=== PATIENT | female | born 1970 | race Caucasian/White ===

== ENCOUNTER → 2016-07-31 | Outpatient (CLI) | payer BC ==
--- NOTE | 2016-08-01 13:09 | MY ---
EXAMINATION: Bilateral digital mammography utilizing CAD. HISTORY: Screening exam. Comparison is made to previous studies dated 05/25/2014, 08/29/2011. FINDINGS: Bilateral heterogeneously dense breast tissue. No suspicious calcifications, masses or a rchitectural distortions. No pathologic appearing lymph nodes, no abnormal skin thickening or nipp le inversion. CAD highlighted regions appear normal at this time. IMPRESSION: BI-RADS category I - negative mammogram. Continued screening according to ACR-ACS gu idelines suggested. THE FALSE-NEGATIVE RATE OF MAMMOGRAM IS APPROXIMATELY 10%. MANAGEMENT OF A PALPABLE ABNORMALITY MUST BE BASED UPON CLINICAL GROUNDS. SENSITIVITY FOR DETECTION OF ABNORMALITIES IN DENSE BREASTS IS LOW. NOTE: A letter will be sent to the patient regarding findings. [facility] -- ELIAZAR Dasilva [phone] - FAX [phone]
== END ==
LOC: MW.MAM 14:23
PROVIDERS: ATTEND Obstetrics & Gynecology
DX: Z12.31 Encounter for screening mammogram for malignant neoplasm of breast (principal)
CPT/HCPCS: G0202; G0202-26

== ENCOUNTER 2016-09-25 06:27 | Observation (INO) | payer BC ==
[~2016-09-25 06:27] MED LIST: Clindamycin Phosphate 900 MG in Dextrose 5% in Water 50 ML IV SCH; DEXTROSE 5% IV ONE; GENTAMICIN IV ONE; Gentamicin Pediatric 10 MG/ML 2 ML SDV IV ONE; Sodium Chloride 0.9% 10 ML Syringe FLUSH PRN; Sodium Chloride 0.9% 2.5 ML Syringe FLUSH PRN; WATER IV ONE
[2016-09-25] MEDS ORDERED: Ondansetron 4 MG/2 ML SDV ONE (07:06)
[2016-09-25] MEDS ORDERED: fentaNYL 250 MCG/5 ML SDV ONE (07:06)
[2016-09-25] MEDS ORDERED: diphenhydrAMINE 50 MG/ML SDV ONE (07:06)
[2016-09-25] MEDS ORDERED: Lidocaine 2% 5 ML SDV ONE (07:06)
[2016-09-25] MEDS ORDERED: Midazolam 1 MG/ML 2 ML SDV ONE (07:06)
[2016-09-25] MEDS ORDERED: Propofol 200 MG/20 ML SDV ONE (07:06)
[2016-09-25] MEDS ORDERED: HYDROmorphone 2 MG/ML Syringe ONE (07:06)
[2016-09-25] MEDS ORDERED: Dexamethasone 4 MG/ML 5 ML MDV ONE (07:06)
--- NOTE | 2016-09-25 07:06 | PCM.PREANE ---
Preanesthetic Assessment - Anesthesia/Transfusion/Family Hx Anesthesia History: Prior Anesthesia Without Reaction Family History of Anesthesia Reaction: No Transfusion History: No Prior Transfusion(s) - Review of Systems General: No Symptoms Pulmonary: No Symptoms Cardiovascular: No Symptoms Gastrointestinal: No symptoms Neurological: No Symptoms Other: Reports: None - Physical Assessment O2 Sat by Pulse Oximetry: 99 Respiratory Rate: 16 Vital Signs: Last Vital Signs Temp 36.3 C 09/25/16 06:45 Pulse 77 09/25/16 06:45 Resp 16 09/25/16 06:45 BP 115/70 09/25/16 06:45 Pulse Ox 99 09/25/16 06:45 Height: 1.75 m Weight: 77.111 kg ASA Class: 2 Mental Status: Alert & Oriented x3 Airway Class: Mallampati = 2 Dentition: Reports: Normal Dentition Thyro-Mental Finger Breadths: 3 Mouth Opening Finger Breadths: 3 ROM/Head Extension: Full Lungs: Clear to auscultation, Normal respiratory effort Cardiovascular: Regular Rate, Regular Rhythm - Allergies Allergies/Adverse Reactions: Allergies Allergy/AdvReac Type Severity Reaction Status Date / Time Penicillins Allergy Rash Verified 09/25/16 06:52 - Blood Blood Available: No - Anesthesia Plan Pre-Op Medication Ordered: None - Acknowledgements Anesthesia Type Planned: General Anesthesia Pt an Appropriate Candidate for the Planned Anesthesia: Yes Alternatives and Risks of Anesthesia Discussed w Pt/Guardian: Yes Pt/Guardian Understands and Agrees with Anesthesia Plan: Yes PreAnesthesia Questionnaire Genitourinary History: Reports: Other (See Below) (HSV 2) 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 [No Known Home Meds] 09/21/16 [History] - CURRENT (IN HOUSE) MEDS Current Meds: Current Medications Clindamycin Phosphate 900 mg/ (Dextrose/Water) 56 mls @ 100 mls/hr IV ONETIME ERNESTO Sodium Chloride (Saline Flush) 10 ml FLUSH ASDIRECTED PRN PRN Reason: Keep Vein Open Sodium Chloride (Saline Flush) 2.5 ml FLUSH ASDIRECTED PRN PRN Reason: Keep Vein Open Discontinued Medications Gentamicin Sulfate (Gentamicin) 115.6665 mg IV ONETIME ONE Stop: 09/25/16 06:01 Gentamicin Sulfate 385 mg/ (Dextrose/Water) 109.625 mls @ 219.25 mls/hr IV ONETIME ONE Stop: 09/25/16 06:29
[2016-09-25] MEDS ORDERED: Sodium Chloride 0.9% 20 ML ONE (07:07)
[2016-09-25] MEDS ORDERED: Clindamycin Phosphate in D5W 900 MG in Premix Bag 1 BAG IV SCH ×2 (07:15)
[2016-09-25] MEDS ORDERED: Methylene Blue 50 MG/10 ML Ampule IV ONE (07:16)
[2016-09-25] MEDS ORDERED: Bupivacaine 0.25% 10 ML SDV ONE (07:16)
[2016-09-25] MEDS ORDERED: Fluorescein 5 ML Vial ONE (07:17)
[2016-09-25] MEDS ORDERED: GENTAMICIN IV ONE ×2 (07:30)
[2016-09-25] MEDS ORDERED: WATER IV ONE ×2 (07:30)
[2016-09-25] MEDS ORDERED: DEXTROSE 5% IV ONE ×2 (07:30)
[2016-09-25] MEDS ORDERED: Scopolamine 1.5 MG Transdermal Patch ONE (07:42)
[2016-09-25] MEDS ORDERED: Phenylephrine/Normal Saline 100 MCG/ML 10 ML Syringe ONE (08:13)
[2016-09-25] MEDS ORDERED: ePHEDrine 50 MG/ML SDV ONE (08:13)
[2016-09-25] MEDS ORDERED: fentaNYL 100 MCG/2 ML SDV IVPUSH PRN (08:35)
[2016-09-25] MEDS ORDERED: Furosemide 40 MG/4 ML VIAL ONE (08:39)
[2016-09-25] MEDS ORDERED: Neostigmine Methylsulfate 1 MG/ML 5 ML Syringe ONE (09:53)
[2016-09-25] MEDS ORDERED: Belladonna Alkaloids/Opium 16.2-30 MG Supp RECTAL ONE (10:49)
[2016-09-25] MEDS ORDERED: Acetaminophen/oxyCODONE 325-5 MG Tab PO PRN (10:52)
[2016-09-25] MEDS ORDERED: Ketorolac 30 MG/ML SDV IVPUSH ONE (10:52)
[2016-09-25] MEDS ORDERED: Morphine 4 MG/ML Syringe IVPUSH PRN (10:52)
[2016-09-25] MEDS ORDERED: Promethazine 25 MG/ML SDV IM PRN (10:52)
[2016-09-25] MEDS ORDERED: Ondansetron 4 MG/2 ML SDV IVPUSH PRN (10:52)
[2016-09-25] MEDS ORDERED: Morphine 2 MG/ML Syringe IVPUSH PRN (10:52)
[2016-09-25] MEDS ORDERED: Ketorolac 30 MG/ML SDV IVPUSH PRN (10:52)
[2016-09-25] MEDS ORDERED: Belladonna Alkaloids/Opium 16.2-30 MG Supp ONE (10:53)
[2016-09-25] MEDS ORDERED: Ketorolac 30 MG/ML SDV ONE (10:54)
--- NOTE | 2016-09-25 11:04 | PCM.OPNOTE ---
[id number]. Laparascopic hysterectomy with bilateral salpingectomies Findings: Approximately 10wk size anteverted uterus with bilateral normal adnexa. Filmy and omental adhesions to the anterior abdominal wall. Multifibroid uterus with largest being a subserosal myoma on the the posterior uterus. Bilateral normal ovaries and tubes. Bilateral ureteral efflux noted at the time of cystoscopy Pre Op Diagnosis: Abnormal uterine bleeding. Failed conservative treatment with medication Post-Op Diagnosis: Same. Uterus removed Anesthesia Technique: General ET Tube Primary Surgeon: Cady Mendiola Secondary Surgeon: Abeba Arrieta Anesthesia Provider: Jerry Dickinson Kettle Room Helper: Gwen Cox Pathology: Uterus and tubes Fluid Replacement, Intraop: 2,700 Output, Urine Amount: 75 EBL in mLs: 150 Complications: None known Condition: Good Free Text/Narrative:: Job ID#[id number]
--- NOTE | 2016-09-25 11:12 | PCM.POSTAN ---
POST ANESTHESIA ASSESSMENT - MENTAL STATUS Mental Status: alert, oriented - RESPIRATORY Respiratory Status: respiratory rate WNL, airway patent, O2 saturation stable - CARDIOVASCULAR CV Status: pulse rate WNL - GASTROINTESTINAL GI Status: no symptoms - PAIN Pain Score: 4 - POST OP HYDRATION Hydration Status: adequate & stable - OBSERVATIONS Free Text/Narrative:: no anesthesia problems
[2016-09-25] MEDS: Acetaminophen/oxyCODONE 325-5 MG Tab PO PRN ×3 (13:38→21:49)
--- NOTE | 2016-09-25 20:29 | PCM48HPAN ---
Post Anesthesia Note - EVALUATION WITHIN 48HRS OF ANESTHETIC Vital Signs in Normal Range: Yes Patient Participated in Evaluation: Yes Respiratory Function Stable: Yes Airway Patent: Yes Cardiovascular Function Stable: Yes Hydration Status Stable: Yes Pain Control Satisfactory: Yes Nausea and Vomiting Control Satisfactory: Yes Mental Status Recovered: Yes
[2016-09-25] MEDS: Ketorolac 30 MG/ML SDV IVPUSH SCH (21:06)
[2016-09-26] MEDS: Acetaminophen/oxyCODONE 325-5 MG Tab PO PRN (02:20)
[2016-09-26] MEDS: Ketorolac 30 MG/ML SDV IVPUSH SCH ×2 (03:37→08:44)
[2016-09-26 05:47] LABS: CHLORIDE,CL 100 mmol/L (98-110); SODIUM,NA 131 mmol/L (136-146)
--- NOTE | 2016-09-26 08:12 | PCM.PN ---
- General Info Date of Service: 09/26/16 Functional Status: Reports: pain controlled, tolerating diet, ambulating, urinating - Review of Systems General: Reports: No Symptoms HEENT: Reports: no symptoms Pulmonary: Reports: no symptoms Cardiovascular: Reports: No Symptoms Gastrointestinal: Reports: No symptoms Genitourinary: Reports: no symptoms Musculoskeletal: Reports: no symptoms Skin: Reports: no symptoms Neurological: Reports: No Symptoms Psychiatric: Reports: no symptoms - Patient Data Vitals - most recent: Last Vital Signs Temp 37.3 C 09/26/16 04:00 Pulse 71 09/26/16 04:00 Resp 16 09/26/16 04:00 BP 101/59 L 09/26/16 04:00 Pulse Ox 96 09/26/16 04:00 Weight - most recent: 77.111 kg I&O - last 24 hours: Intake & Output 09/25/16 09/26/16 09/26/16 22:59 06:59 14:59 Intake Total 1150 2400 Output Total 900 1850 Balance 250 550 Lab Results last 24 hrs: Laboratory Results - last 24 hr 09/26/16 09/26/16 Range/Units 05:04 05:04 WBC 14.90 H (4.0-11.0) K/uL RBC 3.58 L (4.30-5.90) M/uL Hgb 10.7 L (12.0-16.0) g/dL Hct 31.9 L (36.0-46.0) % MCV 89.1 (80.0-98.0) fL MCH 29.9 (27.0-32.0) pg MCHC 33.5 (31.0-37.0) g/dL RDW Std Deviation 43.4 (28.0-62.0) fl RDW Coeff of Jessica 13 (11.0-15.0) % Plt Count 276 (150-400) K/uL MPV 9.80 (7.40-12.00) fL Neut % (Auto) 69.6 (48.0-80.0) % Lymph % (Auto) 18.8 (16.0-40.0) % Woodward % (Auto) 11.2 (0.0-15.0) % Eos % (Auto) 0.3 (0.0-7.0) % Baso % (Auto) 0.1 (0.0-1.5) % Neut # (Auto) 10.4 H (1.4-5.7) K/uL Lymph # (Auto) 2.8 H (0.6-2.4) K/uL Woodward # (Auto) 1.7 H (0.0-0.8) K/uL Eos # (Auto) 0.1 (0.0-0.7) K/uL Baso # (Auto) 0.0 (0.0-0.1) K/uL Nucleated RBC % 0.0 /100WBC Nucleated RBCs # 0 K/uL Sodium 131 L (136-146) mmol/L Potassium 4.2 (3.5-5.1) mmol/L Chloride 100 (98-110) mmol/L Carbon Dioxide 24 (21-31) mmol/L BUN 10 (6.0-23.0) mg/dL Creatinine 0.8 (0.6-1.5) mg/dL Est Cr Clr Drug Dosing 91.83 mL/min Estimated GFR (MDRD) > 60.0 ml/min Glucose 93 (60-110) mg/dL Calcium 8.9 (8.8-10.8) mg/dL Med Orders - Current: Current Medications Fentanyl (Sublimaze) 50 mcg IVPUSH .Q5MIN PRN PRN Reason: Pain Stop: 09/29/16 08:36 Last Admin: 09/25/16 11:00 Dose: 50 mcg Clindamycin Phosphate 900 mg/ (Premix) 50 mls @ 100 mls/hr IV ONETIME [facility] Last Admin: 09/25/16 07:54 Dose: 100 mls/hr Ketorolac Tromethamine (Toradol) 30 mg IVPUSH Q6H [facility] Stop: 09/30/16 20:57 Last Admin: 09/26/16 03:37 Dose: 30 mg Morphine Sulfate (Morphine) 2 mg IVPUSH Q2H PRN PRN Reason: Pain (severe 7-10) Morphine Sulfate (Morphine) 4 mg IVPUSH Q2H PRN PRN Reason: Pain (severe 7-10) Ondansetron HCl (Zofran) 4 mg IVPUSH Q6H PRN PRN Reason: Nausea/Vomiting Last Admin: 09/25/16 17:16 Dose: 4 mg Oxycodone/Acetaminophen (Percocet 325-5 Mg) 1 tab PO Q4H PRN PRN Reason: Pain (moderate 4-6) Oxycodone/Acetaminophen (Percocet 325-5 Mg) 2 tab PO Q4H PRN PRN Reason: Pain (moderate 4-6) Last Admin: 09/26/16 02:20 Dose: 2 tab Promethazine HCl (Phenergan) 25 mg IM Q6H PRN PRN Reason: Nausea/Vomiting Sodium Chloride (Saline Flush) 10 ml FLUSH ASDIRECTED PRN PRN Reason: Keep Vein Open Sodium Chloride (Saline Flush) 2.5 ml FLUSH ASDIRECTED PRN PRN Reason: Keep Vein Open Discontinued Medications Belladonna Alkaloids/Opium (B & O Supprettes No. 15a) 1 supp RECTAL ONETIME ONE Stop: 09/25/16 10:50 Last Admin: 09/25/16 11:43 Dose: Not Given Belladonna Alkaloids/Opium (B & O Supprettes No. 15a) Confirm Administered Dose 1 supp .ROUTE .STK-MED ONE Stop: 09/25/16 10:54 Last Admin: 09/25/16 11:01 Dose: 1 supp Bupivacaine HCl (Sensorcaine-Mpf 0.25%) Confirm Administered Dose 20 ml .ROUTE .STK-MED ONE Stop: 09/25/16 07:17 Dexamethasone (Dexamethasone) Confirm Administered Dose 20 mg .ROUTE .STK-MED ONE Stop: 09/25/16 07:07 Diphenhydramine HCl (Benadryl) Confirm Administered Dose 50 mg .ROUTE .STK-MED ONE Stop: 09/25/16 07:07 Ephedrine Sulfate (Ephedrine Sulfate) Confirm Administered Dose 50 mg .ROUTE .STK-MED ONE Stop: 09/25/16 08:14 Fentanyl (Sublimaze) Confirm Administered Dose 250 mcg .ROUTE .STK-MED ONE Stop: 09/25/16 07:07 Fluorescein Sodium (Ak-Fluor) Confirm Administered Dose 5 ml .ROUTE .STK-MED ONE Stop: 09/25/16 07:18 Furosemide (Lasix) Confirm Administered Dose 40 mg .ROUTE .STK-MED ONE Stop: 09/25/16 08:40 Gentamicin Sulfate (Gentamicin) 115.6665 mg IV ONETIME ONE Stop: 09/25/16 06:01 Glycopyrrolate () Confirm Administered Dose 1 mg .ROUTE .STK-MED ONE Stop: 09/25/16 08:16 Hydromorphone HCl (Dilaudid) Confirm Administered Dose 2 mg .ROUTE .STK-MED ONE Stop: 09/25/16 07:07 Clindamycin Phosphate 900 mg/ (Dextrose/Water) 56 mls @ 100 mls/hr IV ONETIME ERNESTO Gentamicin Sulfate 385 mg/ (Dextrose/Water) 109.625 mls @ 219.25 mls/hr IV ONETIME ONE Stop: 09/25/16 06:29 Last Admin: 09/25/16 12:51 Dose: Not Given Sodium Chloride (Normal Saline) Confirm Administered Dose 20 mls @ as directed .ROUTE .STK-MED ONE Stop: 09/25/16 07:08 Gentamicin Sulfate 385 mg/ (Dextrose/Water) 109.625 mls @ 219.25 mls/hr IV ONETIME ONE Stop: 09/25/16 07:59 Last Admin: 09/25/16 07:23 Dose: 219.25 mls/hr Ketorolac Tromethamine (Toradol) Confirm Administered Dose 30 mg .ROUTE .STK- MED ONE Stop: 09/25/16 10:55 Last Admin: 09/25/16 10:57 Dose: 30 mg Ketorolac Tromethamine (Toradol) 30 mg IVPUSH ONETIME ONE Stop: 09/25/16 10:53 Last Admin: 09/25/16 11:44 Dose: Not Given Ketorolac Tromethamine (Toradol) 30 mg IVPUSH Q6H PRN PRN Reason: Pain (severe 7-10) Stop: 09/30/16 10:52 Lidocaine (Xylocaine-Mpf 2%) Confirm Administered Dose 5 ml .ROUTE .STK-MED ONE Stop: 09/25/16 07:07 Methylene Blue (Provayblue) Confirm Administered Dose 50 mg IV .STK-MED ONE Stop: 09/25/16 07:17 Midazolam HCl (Versed 1 Mg/Ml) Confirm Administered Dose 2 mg .ROUTE .STK-MED ONE Stop: 09/25/16 07:07 Neostigmine Methylsulfate (Neostigmine) Confirm Administered Dose 5 mg .ROUTE .STK-MED ONE Stop: 09/25/16 09:54 Ondansetron HCl (Zofran) Confirm Administered Dose 4 mg .ROUTE .STK-MED ONE Stop: 09/25/16 07:07 Phenylephrine HCl (Phenylephrine In Ns 100 Mcg/Ml) Confirm Administered Dose 1 mg .ROUTE .STK-MED ONE Stop: 09/25/16 08:14 Propofol (Diprivan 20 Ml) Confirm Administered Dose 200 mg .ROUTE .STK-MED ONE Stop: 09/25/16 07:07 Scopolamine (Transderm-Scop) Confirm Administered Dose 1.5 mg .ROUTE .STK-MED ONE Stop: 09/25/16 07:43 Vecuronium [place] (Vecuronium) Confirm Administered Dose 10 mg .ROUTE .STK-MED ONE Stop: 09/25/16 07:08 - Exam General: alert, oriented Neck: supple Lungs: Clear to auscultation, Normal respiratory effort Cardiovascular: Regular Rate, Regular Rhythm GI/Abdominal Exam: Normal Bowel Sounds, Soft, Non-Tender, No Distention, No Mass , Other (dressings intact, umbilical incision appears healthy without discharge) Back Exam: Normal Inspection Extremities: Normal Inspection Skin: warm, dry, intact Wound/Incisions: healing well Neurological: no new focal deficit Psy/Mental Status: alert, normal affect, normal mood - Problem List & Annotations (1) S/P hysterectomy SNOMED Code(s): 429794102, 198948228 Code(s): Z90.710 - ACQUIRED ABSENCE OF BOTH CERVIX AND UTERUS Status: Acute Current Visit: Yes - Problem List Review Problem List Initiated/Reviewed/Updated: Yes - My Orders Last 24 Hours: My Active Orders 09/25/16 07:15 Clindamycin Phosphate in D5W [Cleocin in D5W] 900 mg Premix Bag 1 bag IV ONETIME 09/25/16 10:52 Patient Status [ADT] Routine May Shower [RC] ASDIRECTED Notify Provider Intake and Out [RC] ASDIRECTED Notify Provider Vital Signs [RC] ASDIRECTED RT Incentive Spirometry [RC] Q2HWA Up With Assistance [RC] PER UNIT ROUTINE Up ad Dee [RC] PER UNIT ROUTINE Vital Signs [RC] PER UNIT ROUTINE Acetaminophen/oxyCODONE [Percocet 325-5 MG] 1 tab PO Q4H PRN Acetaminophen/oxyCODONE [Percocet 325-5 MG] 2 tab PO Q4H PRN Morphine 2 mg IVPUSH Q2H PRN Morphine 4 mg IVPUSH Q2H PRN Ondansetron [Zofran] 4 mg IVPUSH Q6H PRN Promethazine [Phenergan] 25 mg IM Q6H PRN Peripheral IV Discontinue [OM.PC] Routine Sequential Compression Device [OM.PC] Per Unit Routine Resuscitation Status Routine 09/25/16 10:53 Antiembolic Devices [RC] PER UNIT ROUTINE Intake and Output [RC] Q12H Pulse Oximetry [RC] PER UNIT ROUTINE 09/25/16 21:00 Ketorolac [Toradol] 30 mg IVPUSH Q6H 09/25/16 Dinner Regular Diet [DIET] - Assessment Assessment:: POD#1 S/p LAVH w/ bilateral salpingectomies Doing well Desires discharge home today - Plan Plan:: Discharge home today Pelvic rest for 6wks Bleeding precautions given Infection precautions given Personal cell given for problems or concerns
--- NOTE | 2016-10-03 09:24 | OR ---
SURGEON: Cady Mendiola DATE OF PROCEDURE: 09/25/2016 BRIEF PREOPERATIVE HISTORY: This is a 46-year-old P1 presented to [facility] for complaints of abnormal uterine bleeding for which the patient had been suffering from for approximately 8 years. The patient was seen by me for almost 2 years and over the last year and a half, she has been treated conservatively with tranexamic acid which initially did not work for patient in regard to decreasing amount of bleeding that she was having. The patient has come to the point where she is now not tolerating tranexamic acid as it nauseated her. The patient is aware of endometrial ablation option in addition to Mirena IUD and the patient declined both as the patient fears the IUD and the patient does not want to take the risk of having to have a hysterectomy in the future after a failed endometrial ablation. The patient, at this point, she does not desire any more children and she has passed childbearing according to her. The patient desires definitive treatment with hysterectomy. The patient was apprised of risk of hysterectomy being bleeding infection, poor wound healing, possible damage to the bowel, bladder, ureters, nerves, blood vessels, or any other adjacent structures in the pelvis. The patient also understands the risk of anesthesia and the risk of thromboembolic disease that goes along with from surgery. Knowing all the risks, the patient still desired to go forward with definitive treatment with removal of her uterus. After counseling, the patient would also like removal of her tubes to eliminate any risk of tubal pathology. PREOPERATIVE DIAGNOSES: 1. Abnormal uterine bleeding. 2. Failed conservative treatment with medication. 3. Desires definitive treatment of abnormal uterine bleeding POSTOPERATIVE DIAGNOSES: 1. Abnormal uterine bleeding. 2. Failed conservative treatment with medication. 3. Uterus and tubes removed. PROCEDURES PERFORMED: 1. Lysis of adhesions. 2. Laparoscopic-assisted hysterectomy with bilateral salpingectomies. 3. Cystoscopy. VARNISHING MACHINE OPERATOR SURGEON: Abeba Arrieta M.D. ESTIMATED BLOOD LOSS: Approximately 150 mL. FLUID: Replacement in the OR was 2700 mL of crystalloid. URINE OUTPUT: 75 mL. ANESTHESIA: General endotracheal. FINDINGS: Approximately a 10-week size anteverted uterus with abnormal adnexal on exam. On laparoscopy, filmy omental adhesions to the anterior abdominal wall. Multi fibroid uterus with largest being a subserosal myoma on the posterior surface of the uterus. Bilateral normal ovaries and tubes. Bilateral ureteral efflux noted at the time of cystoscopy at the end of the hysterectomy, and this was after the uterus was removed. To pathology was the uterus and tubes. COMPLICATIONS: None known. CONDITION: Afterwards was good. DESCRIPTION OF PROCEDURE: The patient was taken to the operating room where she was moved over to her OR bed. The patient had Venodynes on and active prior to the induction of general endotracheal anesthesia. After induction of anesthesia, the patient was then prepped in normal sterile fashion. The patient had her bladder backfilled with 60 mL of diluted methylene blue. The patient was then draped in the normal sterile fashion. A time-out was performed to ensure the appropriate patient, appropriate position, and appropriate procedure. The patient did receive clindamycin and gentamicin for preoperative antibiotics prior to start of procedure. Attention then was turned to the patient's vagina where the VCare uterine manipulator was placed in the patient's vagina and introduced into the uterus and then set. Gloves were changed and then transition was made to the patient's abdomen. A 5-mm skin incision was made with the 11 blade scalpel and the Veress needle was carefully introduced at a 90-degree angle. Once 2 pops had been made, the gas was attached with low opening pressures. The gas was then set to high. Once the patient's abdomen was insufflated, the Veress needle was removed and the laparoscope with the Optiview trocar was directly introduced into the patient's abdomen under direct visualization. Survey of the patient's abdomen revealed that the patient had a dense and filmy omental adhesions to the anterior abdominal wall. The upper abdomen was visualized and the liver edge was noted to be smooth. Attention then was turned to the patient's right lower quadrant where after infiltrating with local anesthetic, a 5 mm skin incision was made and a 5 mm trocar and sleeve were then advanced under direct visualization. Attention then was turned to the left lower quadrant which in a similar fashion, after infiltrating with local anesthetic, a 5 mm skin incision was made and a 5 mm trocar and sleeve were then introduced into the abdomen under direct visualization. Secondary to limited visualization, the adhesions were taken down with the LigaSure. The attention was taken to stay close to the anterior abdominal wall, though was noted to be only omental adhesions. Once the dense and filmy adhesions had been successfully released, the operative field was excellent. The patient was placed in Trendelenburg and the uterus was manipulated in order to see the uterus. The uterus, tubes, and ovaries were normal bilaterally. Prior to the start of the hysterectomy, the ureters were identified bilaterally and noted to be coursing deep into the pelvis. At this time, the left tube, ovarian, and tubal peritoneum was grasped, cauterized, and divided in sequential steps until the ovary was completely released. Attention then was turned to the right which in a similar fashion, the ovarian and tubal peritoneum was grasped, cauterized, and divided in sequential steps with the LigaSure until the ovary fell away and inadvertently, the right tube was amputated. The remnant of the right tube was placed in the posterior cul-de-sac to remove at the time of vaginal portion of the surgery. The attention then was turned to the left side of the uterus where the uterine vessels were grasped, cauterized, and sequentially divided down to the uterosacral. Attention then was turned to the right which in a similar fashion, the right side of the uterus was visualized and the ovarian vessels were grasped, cauterized, and divided down to the uterosacrals. The bladder flap was made after the round had been divided. The bladder flap was completely developed. After completely developing the bladder flap, the laparoscopic instruments were removed from the patient's abdomen leaving only the trocars in place, and the gas was turned off. Attention then was turned to the patient's vagina where the VCare uterine manipulator was removed. A weighted speculum was placed in patient's posterior vagina, and the anterior lip of the cervix was grasped with a Tim clamp. A right angle was used to elevate the anterior vagina. A Bovie was used to completely circumscribe the cervix. Once the correct dissection plane had been reached, the paracervical tissues were pushed cranially. The posterior cul-de- sac was entered sharply with the heavy Hospital Unit Coordinator scissors. The Isabelle speculum was then placed in the posterior cul-de-sac. Attention then was turned superiorly to enter the anterior cul-de-sac. The anterior cul-de-sac was entered initially sharply with the Metzenbaum scissors just to ensure entrance was made into the anterior cul-de-sac. The index digit was used for dissection until popping through into the anterior cul-de-sac. The right angle was placed in the anterior cul-de-sac and was used to elevate the bladder off the uterus. A Nehemiah clamp was used on either side to grasp the uterosacrals separate and suture ligate them. Both uterosacrals were tagged. Sequential bites were taken with the Nehemiah to obtain the remaining uterine vasculature. After all pedicles were suture ligated, the uterus was delivered. The right tube was removed as it was in the posterior cul-de-sac. After removing the uterus with the left tube attached and then the right tube separate, the specimen was passed off. Attention then was turned to the previously tagged uterosacrals where the vaginal cuff was attached to the uterosacral on either side. The needles were then cut off. The cuff was closed with 0 Polysorb suture in a running, locked fashion. Attention then was turned to the patient's urethra where the Marshall was removed. Cystoscope was then placed into the patient's bladder and the patient had previously been given Lasix and fluorescein. Prior to the right yellow fluorescein efflux through each ureteral orifice, there was noted urine but after the fluorescein had infiltrated to the kidneys bilaterally, the ureteral efflux was noted. After noted efflux from each ureter, the cystoscope was removed and the bladder was drained. A new Marshall was placed. Gloves were changed. Attention was turned back to the patient's abdomen. The patient was placed in Trendelenburg and the pelvis was copiously irrigated. On the left side wall, there was a small non-hemostatic area that was made hemostatic with cautery from the LigaSure. The patient's pelvis was copiously irrigated again and there were no stray bleeders. At this point, the gas was turned off. The left and right lower quadrant port sites were removed under direct visualization. The excess gas was removed from the patient's abdomen. All instruments were removed from the patient's abdomen. The 5 mm skin incisions were closed with 4-0 Monocryl suture subcuticular. Steri-Strips and Tegaderm were placed. The patient was cleansed, bed was returned to functioning status and the patient was taken down out of the [facility]. The patient then eventually was moved to her postop recovery bed and taken to the recovery in awake and stable condition. Sponge, lap, needle, and instrument counts were correct on each count. The patient tolerated the procedure well. NEWTYOL / MODL /[id number] MTDD
== END 2016-09-26 08:55 | disposition home or self-care (01) ==
LOC: MW.SDS 06:27 → MW.MS 10:52
PROVIDERS: ADMIT Obstetrics & Gynecology; ATTEND Obstetrics & Gynecology
PROC: 0UT94ZZ Resection of Uterus, Percutaneous Endoscopic Approach (ICD-10-PCS; principal; 2016-09-25)
PROC: 0UTC4ZZ Resection of Cervix, Percutaneous Endoscopic Approach (ICD-10-PCS; 2016-09-25)
PROC: 0UT74ZZ Resection of Bilateral Fallopian Tubes, Percutaneous Endoscopic Approach (ICD-10-PCS; 2016-09-25)
DX: D25.2 Subserosal leiomyoma of uterus (principal); Z79.899 Other long term (current) drug therapy; Z80.42 Family history of malignant neoplasm of prostate
CPT/HCPCS: 36415; 58571; 80048; 84703; 85025; 85027; 86850; 86900; 86901; 88307; A9270; G0378; J1100; J1170; J1200; J1580; J1885; J1940; J2250; J2405; J3010; J7060; 00840; J2704; Q9968

== ENCOUNTER 2021-06-01 07:23 | Day surgery (SDC) | payer OTHER ==
[~2021-06-01 07:23] MED LIST changes: -Clindamycin Phosphate 900 MG in Dextrose 5% in Water 50 ML IV SCH; -DEXTROSE 5% IV ONE; -GENTAMICIN IV ONE; -Gentamicin Pediatric 10 MG/ML 2 ML SDV IV ONE; +Lactated Ringers 1,000 ML IV SCH; -Sodium Chloride 0.9% 10 ML Syringe FLUSH PRN; -Sodium Chloride 0.9% 2.5 ML Syringe FLUSH PRN; -WATER IV ONE
[2021-06-01] MEDS ORDERED: fentaNYL 100 MCG/2 ML SDV ONE (09:09)
[2021-06-01] MEDS ORDERED: Propofol 200 MG/20 ML SDV ONE (09:09)
[2021-06-01] MEDS ORDERED: Ondansetron 4 MG/2 ML SDV ONE (09:09)
== END 2021-06-01 10:56 | disposition home or self-care (01) ==
LOC: MW.SDS 07:23
PROVIDERS: ATTEND Surgery
DX: Z12.11 Encounter for screening for malignant neoplasm of colon (principal); D12.0 Benign neoplasm of cecum; D12.2 Benign neoplasm of ascending colon; D12.3 Benign neoplasm of transverse colon; D12.5 Benign neoplasm of sigmoid colon; D12.8 Benign neoplasm of rectum; Z88.0 Allergy status to penicillin; Z88.8 Allergy status to other drugs, medicaments and biological substances; Z98.890 Other specified postprocedural states; Z87.891 Personal history of nicotine dependence; Z88.5 Allergy status to narcotic agent
CPT/HCPCS: 45380; 45385; J2405; J2704; J3010; J7120; 00812